=== PATIENT | female | born 1950 | race Caucasian/White ===

== ENCOUNTER 2017-03-12 09:12 | Day surgery (SDC) | payer MEDICARE, BC ==
[2017-03-11 12:06] VITALS: BP 140/74
[2017-03-11 12:41] LABS: BLOOD UREA NITROGEN 16 mg/dL (7-18)
[~2017-03-12] VITALS: Ht 167.6 cm; Wt 89.5 kg
[~2017-03-12 09:12] MED LIST: CITA20TA5 PO; LISI-170 PO; OXYB5TAB7 PO; ROSU20TA PO
[2017-03-12] MEDS ORDERED: FENTANYL PF 100 MCG/2ML ONE (11:15)
[2017-03-12] MEDS ORDERED: HEPARIN 1,000 UNITS/ML, 10ML ONE (11:16)
[2017-03-12] MEDS ORDERED: MIDAZOLAM 1 MG/ML, 5ML ONE (11:16)
[2017-03-12] MEDS ORDERED: VERAPAMIL 2.5 MG/ML, 2ML ONE (11:16)
[2017-03-12] MEDS ORDERED: LIDOCAINE 2%, 20ML ONE (11:16)
[2017-03-12] MEDS ORDERED: SODIUM CHLORIDE 0.9% 1,000 ML IV SCH (13:00)
== END 2017-03-12 14:58 | disposition home or self-care (01) ==
LOC: CACL 09:12
PROVIDERS: ATTEND Internal Medicine Cardiovascular Disease
DX: I25.10 Atherosclerotic heart disease of native coronary artery without angina pectoris (principal); I10 Essential (primary) hypertension; F10.10 Alcohol abuse, uncomplicated; Z87.440 Personal history of urinary (tract) infections; E78.2 Mixed hyperlipidemia; Z88.6 Allergy status to analgesic agent; E78.00 Pure hypercholesterolemia, unspecified; F32.9 Major depressive disorder, single episode, unspecified; Z86.19 Personal history of other infectious and parasitic diseases; N31.8 Other neuromuscular dysfunction of bladder; Z79.01 Long term (current) use of anticoagulants
CPT/HCPCS: 36415; 71020; 80048; 85025; 85610; 85730; 93458; 99156; C1769; C1894; J1644; J2250; J3010; J3490; Q9967

== ENCOUNTER → 2018-02-27 | Outpatient (CLI) | payer MEDICARE, BC | LOC: CFH 15:17 | PROVIDERS: ATTEND Family Medicine | DX: Z12.31 Encounter for screening mammogram for malignant neoplasm of breast (principal) | CPT/HCPCS: 77067 ==

== ENCOUNTER → 2018-08-04 | Outpatient (CLI) | payer MEDICARE, BC ==
[~2018-08-04] MED LIST changes: -CITA20TA5 PO; +CITA20TA6 PO; +OMNIPAQUE 350 MG/ML, 100ML BOTTLE ONE
[2018-08-04 14:09] LABS: CREATININE 0.91 mg/dL (0.55-1.02)
== END | disposition home or self-care (01) ==
LOC: RAD 11:26
PROVIDERS: ATTEND Family Medicine
DX: K85.90 Acute pancreatitis without necrosis or infection, unspecified (principal); M47.896 Other spondylosis, lumbar region; M41.86 Other forms of scoliosis, lumbar region
CPT/HCPCS: 36415; 74160; 82565; Q9967

== ENCOUNTER → 2019-01-13 | Outpatient (CLI) | payer MEDICARE, BC ==
[~2019-01-13] MED LIST changes: -ROSU20TA PO; +ROSU20TA2 PO
== END | disposition home or self-care (01) ==
LOC: CFH 12:09
PROVIDERS: ATTEND Family Medicine
DX: K85.90 Acute pancreatitis without necrosis or infection, unspecified (principal); R74.8 Abnormal levels of other serum enzymes
CPT/HCPCS: 74160; 82565; Q9967